=== PATIENT | male | born 1990 | race Caucasian/White ===

== ENCOUNTER 2023-11-26 06:58 | Emergency (ER) | payer OTHER, MEDICAID, SELFPAY ==
[2023-11-26 07:04] VITALS: BP 130/79; PULSE 72; O2SAT 94
[2023-11-26 07:06] VITALS: BP 130/79; PULSE 82; RESP 18; TEMP 36.9; O2SAT 99; BMI 22.4
--- NOTE | 2023-11-26 07:08 | ED_ITS ---
HPI - General Adult General Chief complaint: Ear Stated complaint: Infection in R/ear Time Seen by Provider: 11/26/23 07:05 History of Present Illness HPI narrative: 33-year-old male presents with concern for right ear infection. 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 He has had about 2.5 weeks of right ear pain that worsened in the last few days. He has not been swimming recently so it was surprised by th is. He has had the sensation of fullness in his right ear. No discharge or bleeding. He denies fevers, chills, visual changes, numbness or weakness, lightheadedness or passing out, nausea or vomiting, rash, or other changes. He has started taking fluoroquinolone eardrops in the last day, q.i.d., and has experienced doing this from previous infections with plenty of medication left. He is comfortable taking Tylenol and ibuprofen at home. No antibiotic allergies or recent antibiotics. Related Data Previous Rx's Medication Instructions Recorded amoxicillin 875 mg-potassium 1 tab PO BID 7 days #14 tabs 11/26/23 clavulanate 125 mg tablet Allergies Allergy/AdvReac Type Severity Reaction Status Date / Time bee venom protein (honey bee) Allergy Swelling Verified 11/26/23 07:10 of Lip/Tongue/Throat Review of Systems Review of Systems Narrative: Constitutional: no fever, no chills Eyes: no visual disturbance, no discharge Ears, Nose, Mouth, Throat: no rhinorrhea, no sore throat Cardiovascular: no chest pain, no palpitations Respiratory: no cough, no shortness of breath Gastrointestinal: no abdominal pain, no vomiting, no diarrhea Genitourinary: no dysuria, no hematuria Musculoskeletal: no back pain, no neck stiffness Skin: no rash, no wound Neurological: no focal weakness, no focal numbness Patient History Social History Smoking Status: Never smoker Exam Narrative Exam Narrative: Const: no acute distress, non toxic appearing; calm, conversant, pleasant Eyes: PERRLA, EOMI ENT: uvula midline. No tonsillar swelling or exudate. No edema or swelling of oral cavity including tongue, under tongue, cheeks, submental, sublingual areas. No pain on palpation of throat. No pus or exudate. No drooling. No trismus. No stridor. Left TM with wax. Right TM swollen, erythematous with inflammatory changes and white appearing exudate. No tenderness or erythema to mastoid. Neck: supple, non-tender Resp: no respiratory distress, clear to auscultation bilaterally Card: regular rate and rhythm, no murmurs Abd: non tender diffusely, no rigidity or rebound or guarding Back: no T or L spine tenderness, no CVA tenderness bilaterally Extrem: no deformities, no swelling bilateral lower extremities Neuro: ANOx4, dye tub tender 2 through 12 intact, grossly intact sensation and strength all extremities, normal ambulation Skin: no rash, warm and dry Initial Vital Signs Initial Vital Signs: Vital Signs Pulse Rate 72 11/26/23 07:04 Blood Pressure 130/79 11/26/23 07:04 Pulse Oximetry 94 11/26/23 07:04 Course Course Course Narrative: This presentation is most consistent with otitis externa in a well-appearing, afebrile patient who recently started fluoroquinolone ear drops q.i.d.. No evidence of mastoiditis, deep space neck infection, meningitis, malignant otitis externa, or clear tympanic membrane rupture at this time. No evidence of sepsis. However, I discussed with patient we have difficulty visualizing the tympanic membrane, and it does concern me he has been having this recurrent infection without prior ENT assessment. In this setting, in addition to recommending continuation of his ear drops for 7 days, I have prescribed and started 7 days of Augmentin b.i.d., and we discussed the strict importance of close primary care follow-up for discussion of ENT referral. I discussed that while infection is most likely, there are rare malignancies that can cause recurring symptoms like this, and he needs reassessment outpatient. He fully understands this and is comfortable with plan, with no other new concerns. He declines additional pain medications here. Repeat exam and vital signs reassuring. Questions answered. Plan reviewed. Patient discharged in stable condition. Orders Ordered: Discontinued Medications Amoxicillin/Clavulanate Potassium (Amoxicillin/Clav 875/125 Mg) 1 tab PO NOW ONE Stop: 11/26/23 07:30 Last Admin: 11/26/23 07:45 Dose: 1 tab Documented By: NITISH Vital Signs Vital signs: Vital Signs - 8 hr 11/26/23 07:04 11/26/23 07:04 11/26/23 07:06 Temperature 98.4 F Pulse Rate 72 82 Respiratory Rate 18 Blood Pressure 130/79 130/79 Pulse Oximetry 94 99 Oxygen Delivery Method Room Air 11/26/23 07:30 11/26/23 07:30 Temperature Pulse Rate 67 Respiratory Rate Blood Pressure 122/73 Pulse Oximetry 99 Oxygen Delivery Method Discharge Plan Departure Patient Disposition: Home Clinical Impression: Otitis externa, Earache Instructions: How to Instill Ear Drops, DI for Otitis Media (Middle Ear Infect ion)-Child Activity Restrictions/Additional Instructions: It was a pleasure taking care of you today. It is important to fully read and understand the below. Please ask us if you have any questions. We think the most likely cause of your symptoms is otitis externa. However, as discussed, given your recurring difficulty with this and difficulty visualizing your eardrum, in case there is a deeper infection I am also prescribing you Augmentin to take twice daily for 7 days. Please continue your ear drops for 7 days as well. It is very important you are seen by your primary doctor within 3-5 days to be reassessed and discuss ENT referral as we discussed. No tests or assessments are perfect, and your condition could interchange agent time. If your symptoms change or worsen, it is very important you immediately seek medical care. If you have any new or worsening pain, hearing changes, discharge, rash, lightheadedness or passing out, shortness of breath, fever, vomiting, confusion, numbness, weakness, or anything else that concerns you, please immediately seek medical care. If you have been prescribed any medications: please read the drug package inserts on how to properly use the medication and any potential side effects. If you had labs (blood tests) or imaging (CT scan or x-rays) done during your visit: please follow up on the results of these with your primary care doctor, as discussed. In addition, please know the results we received today may be preliminary. Our usual practice is to follow up on tests within a few days of a patient's discharge from the Emergency Department and notify you of any changes. These may lead to changes to your treatment plan. However, the best way to obtain and interpret these test results is through your Primary Care Provider. I f you need to update your contact information, please stop by the front end application developer and alert the Registration personnel before you leave the Emergency Department. Thank you for the opportunity to participate in your healthcare. We are always here and happy to see you in the future. Prescriptions: New amoxicillin-pot clavulanate 875-125 mg tablet 1 tab PO BID 7 Days Qty: 14 0RF Referrals: Miscellaneous,Doctor, MD [Primary Care Provider] - Stand Alone Forms: Patient Portal/API
[2023-11-26 07:30] VITALS: BP 122/73; PULSE 67; O2SAT 99
[2023-11-26] MEDS: AMOXICILLIN/CLAV 875/125 MG 1 TAB PO (07:45)
== END 2023-11-26 07:53 | disposition home or self-care (01) ==
LOC: ED 07:20
PROVIDERS: Emergency Provider Emergency Medicine
DX: H60.91 Unspecified otitis externa, right ear (principal)
CPT/HCPCS: 99283